=== PATIENT | male | born 1980 | race Caucasian/White ===

== ENCOUNTER 2017-12-22 11:19 | Emergency (ER) | payer OTHER, SELFPAY ==
[2017-12-22] VITALS (8 sets, daily range): BP systolic 131–147; BP diastolic 69–99; PULSE 73–107; RESP 12–18; TEMP 36.6; O2SAT 96–99; BMI 27.6
--- NOTE | 2017-12-22 11:33 | ED.RN ---
PT STATES CAN HEAR VOICES THROUGH THE ELIAS, DENIES SUICIDAL IDEATION. PT STATES HAVING DELUSIONS OF GRANDEUR, PARANOIA, DENIES VISUAL HALLUCINATIONS. PT CALLED SO BECAUSE HE RECOGNIZED HE WAS HALLUCINATING. PT ARRIVES COOPERATIVE, CALM. PT IS AND STATES SEVERE PTSD.
--- NOTE | 2017-12-22 12:12 | ED.RN ---
while registration in room. pt becomes very loud and angry. stating i don't want to give information. pt then screams about medical staff ruining his credit. registration felt threatened. phil financial systems analyst in room
[2017-12-22 12:19] LABS: Absolute Lymphocyte Count 1.96 X10^3/ul (0.83-4.51); Absolute Neutrophil Count 5.1 X10^3/uL (2.0-7.7); Basophil# 0.04 X10^3/uL; Basophil% 0.5 % (0-1); Eosinophil# 0.03 X10^3/uL; Eosinophils% 0.4 % (0-5); Hematocrit 49.5 % (40-54); Hemoglobin 17.1 g/dl (13.0-16.5); Lymphocyte # 1.96 X10^3/ul (4.0); Lymphocyte % 25.4 % (19-41); Mean Corp Hgb Conc 34.5 g/gl (32-36); Mean Corpuscular Hgb 28.5 pg (27.0-32.0); Mean Corpuscular Volume 82.5 fL (80-94); Mean Platelet Vol. 9.3 fl (6.2-12.0); Monocyte# 0.57 X10^3/uL; Monocyte% 7.4 % (0-10); Neutrophil # 5.09 X10^3/uL (2.7-7.7); Platelet Count 361 K/mm3 (150-450); RBC Distribution Width CV 13.1 % (11.6-14.6); RBC Distribution Width SD 40.2 fl (35.1-43.9); White Blood Count 7.7 K/mm3 (4.4-11.0)
[2017-12-22 12:29] LABS: POSITIVE COUNT NO; POSITIVE DIFFERENTIAL NO; POSITIVE MORPHOLOGY NO
[2017-12-22 12:32] LABS: Anion Gap 9 (5-15); BUN 20 mg/dL (7-18); BUN/Creat Ratio 16.3 RATIO (10-20); Calcium,Total 9.3 mg/dL (8.5-10.1); Chloride 108 mmol/L (98-107); Creatinine, Serum 1.23 mg/dL (0.70-1.30); EST Glomerular Filtration Rate 70 mL/min (>60); Est Glom Filt Rate - Afr Amer 85 mL/min (>60); Estimated Creatinine Clearance 86.73 ml/min; Glucose 116 mg/dL (74-106); Potassium 3.7 mmol/L (3.5-5.1); Sodium Level 142 mmol/L (136-145)
--- NOTE | 2017-12-22 13:00 | ED.RN ---
PER ASHOK WITH CRISIS EITHER HIM OR ROBERTA WILL BE IN TO SEE THE PT
[2017-12-22] MEDS: LORazepam 2 MG/ML Syringe IM (13:40)
[2017-12-22] MEDS: Haloperidol Lactate 5 MG/ML Vial IM (13:40)
--- NOTE | 2017-12-22 13:46 | ED.RN ---
Pt has displayed increased control. Requested po meds rather than IM. Physician agreed.
[2017-12-22] MEDS: Haloperidol 1 MG Tablet 2 MG PO (14:03)
[2017-12-22] MEDS: LORazepam 1 MG Tablet 2 MG PO ×2 (14:03→21:30)
--- NOTE | 2017-12-22 14:04 | ED.RN ---
pt very paranoid. refuses shots. pt threatening to kill self. pt states hearing voices. po meds accepted after a long debate
--- NOTE | 2017-12-22 14:24 | ED.RN ---
Pt has outbursts of anger and frustration related to paranoid thoughts. Admits to auditory hallucinations, delusions of grandeur, suicidal thoughts. states he is being stalked by an imaginary enemy (JAVED). He calms when presented with reality. He is redirected with minimal instruction. Pt has not physically threatened self or staff.
--- NOTE | 2017-12-22 14:25 | ED.DCSUM_ITS ---
- ER Visit Summary Date of Service: 12/22/17 Chief Complaint: [Hallucinations, delusions and paranoia] History of Present Illness: The patient is a 37 M [presents the emergency department via police. Patient apparently called the police because he felt like somebody was hunting him. Patient states that over the last 5 days he has had increased hallucinations and has been hearing voices. Patient feels like he needs help. He does have a history of PTSD, depression, and anxiety. Patient is a war . Patient also states that he has some flea bites on his hands times for 5 days. He denies any chest pain or abdominal pain. Patient denies illicit drug use. Patient does not smoke or drink alcohol.] Patient denies feeling suicidal or homicidal. Physical Examination: [HEENT-PERRLA, EOMI. Cranial nerves II through XII grossly intact. TMs clear. Mucous membranes moist. No adenopathy. Cardiovascular-regular rate and rhythm without murmur or ectopy Lungs-clear to auscultation, chest wall stable without crepitus or subcu emphysema Abdomen-normoactive bowel sounds, soft, nontender, no rebound or rigidity, no peritoneal signs. Extremities-intact ?4, normal range of motion, normal pulses, atraumatic]. Patient has a faint erythematous rash involving the hands and digits. I do not appreciate the rash anywhere else on his body. Test Results: [CBC with differential showed a white count 7.7, hemoglobin 17, hematocrit 49, platelets 361. Chemistries unremarkable. Alcohol was negative. Emergency Department Course and Treatment: [Patient was medicated with 2 mg of Haldol and 2 mg of Ativan apartment.] Treatment Plan: [Evaluation by crisis and final disposition pending. I do feel patient would benefit from inpatient hospitalization.] Disposition: [Pending evaluation by crisis] Impression: [Psychosis Paranoia Depression] This note was generated with [employer] dictation software. It may contain incorrect words, spelling, and punctuation that were not noted in review of the chart prior to signing ED Disposition - Plan for ED Patient: Chief Complaint: Mental Health [facility] [[facility] Provider[facility] -
--- NOTE | 2017-12-22 14:36 | ED.RN ---
pt phone case lying on table. no phone observed, this rn asks pt where phone is. pt states i hid it
[2017-12-22 14:40] LABS: Amphetamine Urine VISTA NEGATIVE (<1000 ng/mL); Barbiturate Urine VISTA NEGATIVE (< 200 ng/mL); Benzodiazepine Urine VISTA NEGATIVE (< 200 ng/mL); Cocaine Urine VISTA NEGATIVE (< 300 ng/mL); Ecstacy Urine VISTA NEGATIVE (< 500 ng/mL); Methadone Urine VISTA NEGATIVE (< 300 ng/mL); PCP Urine VISTA NEGATIVE (< 25 ng/mL); THC Urine VISTA POSITIVE (< 50 ng/mL); Vista UDS pH Range 6
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
--- NOTE | 2017-12-22 17:16 | ED.RN ---
PER CRISIS ORBERTA THERE IS NO STOCK TURNER ASSIGNED TO THE PT OF YET; WHEN THERE IS THEY WILL CALL US FOR THE INFORMATION ABOUT THE PT THAT THEY NEED
--- NOTE | 2017-12-22 19:36 | ED.RN ---
PER ROBERTA FROM CRISIS PT IS AWAITING THE MS TO CALL BACK WITH A RN CORONARY CARE UNIT, TO DECIDE PT CARE PLAN AND DETERMINE PLACEMENT. THIS RN HAD [employer] PRICING CONSULTANT CALL FOR FOLLOW UP. PT HAS NOT YET BEEN ASSIGNED A RN CORONARY CARE UNIT.
--- NOTE | 2017-12-22 20:51 | ED.RN ---
JUAN PABLO NEGRO [phone] BEST FRIEND, EMERGENCY CONTACT
[2017-12-22] MEDS: Haloperidol 5 MG Tablet PO (21:30)
[2017-12-23] VITALS (13 sets, daily range): BP systolic 128–138; BP diastolic 72–93; PULSE 67–106; RESP 12–18; O2SAT 95–98
--- NOTE | 2017-12-23 07:31 | NURSING ---
ANDREW MOLINA, CALLED TO VERIFY PATIENT IS IN ER
--- NOTE | 2017-12-23 10:05 | NURSING ---
ANDREW CURRY, [facility]. WANTS EVERYTHING FAXED TO THEM FAX [phone]
--- NOTE | 2017-12-23 10:54 | NURSING ---
ACCEPTED AT [facility]
--- NOTE | 2017-12-23 10:56 | ED.RN ---
gave report to [facility]
--- NOTE | 2017-12-23 11:11 | ED.RN ---
placed lunch order, called dietary.
--- NOTE | 2017-12-23 12:09 | ED.RN ---
KEARA WITH [facility] CALLED, WILL BE HERE IN APPROX 90MIN.
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
--- NOTE | 2017-12-23 13:58 | ED.RN ---
pt left with [facility] for transfer to [facility]. Pt gave no issues and left cooperatively.
== END 2017-12-23 13:55 ==
PROVIDERS: Emergency Provider Emergency Medicine
DX: F29 Unspecified psychosis not due to a substance or known physiological condition (principal); F22 Delusional disorders; F32.9 Major depressive disorder, single episode, unspecified; F41.9 Anxiety disorder, unspecified; Z79.899 Other long term (current) drug therapy
CPT/HCPCS: 80048; 80307; 80320; 85025; 96372; 99282; G0480